=== PATIENT | female | born 1980 | race Caucasian/White ===

== ENCOUNTER 2019-06-13 15:48 | Outpatient (CLI) | payer MEDICARE, MEDICAID | END 2019-06-13 23:59 | disposition home or self-care (01) | LOC: CVU 15:48 | PROVIDERS: ATTEND Surgery | DX: T82.858A Stenosis of other vascular prosthetic devices, implants and grafts, initial encounter (principal); N18.6 End stage renal disease; Y83.8 Other surgical procedures as the cause of abnormal reaction of the patient, or of later complication, without mention of misadventure at the time of the procedure | CPT/HCPCS: 93990 ==

== ENCOUNTER 2020-09-05 09:43 | Outpatient (CLI) | payer MEDICARE, MEDICAID ==
[~2020-09-05] VITALS: Ht 142.2 cm; Wt 49.0 kg
[2020-09-05 10:19] VITALS: BP 136/90
[2020-09-05] MEDS ORDERED: SENSIPAR PO (10:24)
[2020-09-05] MEDS ORDERED: WARFARIN PO (10:24)
[2020-09-05] MEDS ORDERED: SODIUM CHLORIDE 0.9% 1,000 ML IV SCH (10:30)
[2020-09-05 11:23] LABS: INTERNATIONAL NORMALIZED RATIO 1.31 (0.93-1.1); PROTHROMBIN TIME 13.8 Seconds (9.6-11.5)
[2020-09-05 11:27] LABS: BASOPHILS % (AUTO) 1 % (0-1); EOSINOPHILS % (AUTO) 1 % (1-7); LYMPHOCYTES % (AUTO) 20 % (22-44); MEAN CORPUSCULAR HEMOGLOBIN 33.9 pg (27.0-34.8); MEAN CORPUSCULAR HGB CONC 33.8 g/dL (32.4-35.8); MEAN PLATELET VOLUME 7.7 fL (7.4-10.4); MONOCYTES % (AUTO) 7 % (2-9); NEUTROPHILS % (AUTO) 71 % (42-75); PLATELET COUNT 140 x10^3/uL (130-400); RED BLOOD COUNT 3.26 x10^6/uL (3.82-5.3)
[2020-09-05 11:31] LABS: ALBUMIN 3.4 g/dL (3.4-5.0); ANION GAP 7 mmol/L (5-15); CALCIUM 9.6 mg/dL (8.5-10.1); CHLORIDE 98 mmol/L (98-107)
[2020-09-05 11:35] LABS: ALANINE AMINOTRANSFERASE 13 U/L (12-78); ALKALINE PHOSPHATASE 120 U/L (45-117); BILIRUBIN,TOTAL 0.8 mg/dL (0.2-1.0); CREATININE 6.33 mg/dL (0.55-1.02); MD NO; TOTAL PROTEIN 8.7 g/dL (6.4-8.2)
== END 2020-09-05 13:38 | disposition home or self-care (01) ==
LOC: OUT 09:43 → EDSTATUS 12:00 → OUT 13:38
PROVIDERS: ATTEND Surgery
DX: T82.898A Other specified complication of vascular prosthetic devices, implants and grafts, initial encounter (principal); Z53.8 Procedure and treatment not carried out for other reasons; Y83.8 Other surgical procedures as the cause of abnormal reaction of the patient, or of later complication, without mention of misadventure at the time of the procedure; I12.0 Hypertensive chronic kidney disease with stage 5 chronic kidney disease or end stage renal disease; N18.6 End stage renal disease; Z88.8 Allergy status to other drugs, medicaments and biological substances; Z91.048 Other nonmedicinal substance allergy status; Z98.890 Other specified postprocedural states; Z79.01 Long term (current) use of anticoagulants; Z79.899 Other long term (current) drug therapy
CPT/HCPCS: 36415; 80053; 85025; 85610

== ENCOUNTER 2020-10-23 08:08 | Day surgery (SDC) | payer MEDICARE, MEDICAID ==
[~2020-10-23] VITALS: Ht 142.2 cm; Wt 48.9 kg
[~2020-10-23 08:08] MED LIST: SENSIPAR PO; WARFARIN PO
[2020-10-23] MEDS ORDERED: FLUMAZENIL 0.1 MG/1 ML, 5ML ONE (08:50)
[2020-10-23] MEDS ORDERED: FENTANYL PF 100 MCG/2ML ONE (08:50)
[2020-10-23] MEDS ORDERED: MIDAZOLAM 1 MG/ML, 5ML ONE (08:50)
[2020-10-23] MEDS ORDERED: HEPARIN 1,000 UNITS/ML, 10ML ONE (08:51)
[2020-10-23] MEDS ORDERED: NALOXONE 1 MG/ML, 2ML ONE (08:51)
[2020-10-23] MEDS ORDERED: PROTAMINE SULFATE 10 MG/ML, 25ML ONE (08:51)
[2020-10-23] MEDS ORDERED: LIDOCAINE 1%, 10ML ONE (08:56)
[2020-10-23] MEDS ORDERED: D5%-0.45% NACL 1,000 ML IV SCH (09:00)
[2020-10-23] MEDS ORDERED: MUCINEX PO (09:10)
[2020-10-23 09:18] LABS: BASOPHILS % (AUTO) 1 % (0-1); EOSINOPHILS % (AUTO) 1 % (1-7); LYMPHOCYTES % (AUTO) 20 % (22-44); MEAN CORPUSCULAR HEMOGLOBIN 34.3 pg (27.0-34.8); MEAN PLATELET VOLUME 7.8 fL (7.4-10.4); MONOCYTES % (AUTO) 7 % (2-9); NEUTROPHILS % (AUTO) 71 % (42-75); PLATELET COUNT 163 x10^3/uL (130-400); RED CELL DISTRIBUTION WIDTH 14.9 % (9.6-15.2)
[2020-10-23 09:20] LABS: MD NO
[2020-10-23 09:28] LABS: ALANINE AMINOTRANSFERASE 12 U/L (12-78); ALBUMIN 3.2 g/dL (3.4-5.0); ANION GAP 5 mmol/L (5-15); CALCIUM 9.3 mg/dL (8.5-10.1); CHLORIDE 98 mmol/L (98-107); CREATININE 5.19 mg/dL (0.55-1.02)
[2020-10-23 09:31] LABS: ALKALINE PHOSPHATASE 120 U/L (45-117); BILIRUBIN,TOTAL 0.8 mg/dL (0.2-1.0); TOTAL PROTEIN 8.7 g/dL (6.4-8.2)
== END 2020-10-23 11:38 | disposition home or self-care (01) ==
LOC: OUT 08:08
PROVIDERS: ATTEND Surgery
DX: T82.858A Stenosis of other vascular prosthetic devices, implants and grafts, initial encounter (principal); I12.0 Hypertensive chronic kidney disease with stage 5 chronic kidney disease or end stage renal disease; N18.6 End stage renal disease; Z79.01 Long term (current) use of anticoagulants; Z79.899 Other long term (current) drug therapy; Z86.718 Personal history of other venous thrombosis and embolism; Z88.8 Allergy status to other drugs, medicaments and biological substances; Z98.890 Other specified postprocedural states; Z99.2 Dependence on renal dialysis; Z82.49 Family history of ischemic heart disease and other diseases of the circulatory system; Z83.49 Family history of other endocrine, nutritional and metabolic diseases; Y83.8 Other surgical procedures as the cause of abnormal reaction of the patient, or of later complication, without mention of misadventure at the time of the procedure
CPT/HCPCS: 36902; 80053; 85025; 99156; 99157; C1725; C1769; C1894; J2250; J3010; J1644; J2720; J2310